=== PATIENT | female | born 1965 | race Caucasian/White ===

== ENCOUNTER 2020-08-09 16:50 | Observation (INO) | payer BC ==
[~2020-08-09] VITALS: Ht 170.2 cm; Wt 92.6 kg
[2020-08-09 17:30] LABS: BASOPHILS 0.9 % (0-2); EOSINOPHILS 1.8 % (0-7); HEMATOCRIT 39.9 % (36.0-48.0); HEMOGLOBIN 13.7 g/dL (12-16); LYMPHOCYTES 49.6 % (15-50); MCH 29.6 pg (26.0-34.0); MCHC 34.4 g/dL (31.0-37.0); MCV 86.2 fL (80.0-100.0); MEAN PLATELET VOLUME 8.1 fL (7.4-10.4); MONOCYTES 10.9 % (2-11); NEUTROPHILS 36.8 % (40-80); PLATELET COUNT 155 10x3/uL (130-400); RBC 4.63 10x6/uL (4.00-5.40); RDW 14.6 % (11.5-14.5); WBC 7.1 10x3/uL (4.8-10.8)
[2020-08-09 17:44] VITALS: BP 112/43
[2020-08-09 17:49] LABS: ANION GAP 12.8 mmol/L (8-16); POTASSIUM - SERUM 3.8 mmol/L (3.5-5.1)
[2020-08-09 17:57] LABS: ALBUMIN 3.8 g/dL (3.4-5.0); BILIRUBIN - TOTAL 0.92 mg/dL (0.2-1.3); MAGNESIUM - SERUM 2.1 mg/dL (1.8-2.4); PROTEIN - SERUM 7.6 g/dL (6.4-8.2)
--- NOTE | 2020-08-09 19:35 | NUR ---
PT AMBULATED TO RESTROOM WITH ASSISTANCE.
--- NOTE | 2020-08-09 19:41 | NUR ---
URINE SENT TO LAB
[2020-08-09 19:50] LABS: BILIRUBIN NEGATIVE (NEGATIVE); KETONE NEGATIVE (NEGATIVE); NITRITE NEGATIVE (NEGATIVE); UROBILINOGEN NORMAL mg/dL (< 2)
[2020-08-09 19:51] LABS: BACTERIA MANY HPF (NONE SEEN); SQUAMOUS EPITHELIAL 0-5 HPF (0-4)
[2020-08-09 20:39] LABS: ERYTHROCYTE SEDIMENTATION RATE 15 mm/hr (0-30)
[2020-08-09 22:00] VITALS: BP 111/56; Ht 170.2 cm; Wt 92.6 kg
--- NOTE | 2020-08-10 03:57 | NUR ---
PATIENT HAD PAIN MANAGED WITH THE PRESCRIBED PAIN MEDICATION, SHE IS CURRENTLY RESTING IN BED WITH HER EYES CLOSED.
[2020-08-10 04:00] VITALS: BP 108/48
[2020-08-10 07:21] LABS: HEMOGLOBIN 11.9 g/dL (12-16); RDW 14.1 % (11.5-14.5)
[2020-08-10 07:27] LABS: HEMATOCRIT 33.7 % (36.0-48.0); MCH 30.5 pg (26.0-34.0); MCHC 35.3 g/dL (31.0-37.0); MCV 86.2 fL (80.0-100.0); RBC 3.91 10x6/uL (4.00-5.40); WBC 6.6 10x3/uL (4.8-10.8)
[2020-08-10 07:29] LABS: PLATELET COUNT 113 10x3/uL (130-400)
[2020-08-10 07:47] LABS: ALBUMIN 3.2 g/dL (3.4-5.0); ALKALINE PHOSPHATASE 126 U/L (30-120); ALT (SGPT) 89 U/L (10-68); CALC OSMOLALITY 274 mosm/kg (275-300); CARBON DIOXIDE 27.7 mmol/L (21.0-32.0); CHLORIDE - SERUM 102 mmol/L (98-107); CREATININE - SERUM 0.7 mg/dL (0.6-1.3); GLUCOSE 106 mg/dL (74-106); MAGNESIUM - SERUM 2.1 mg/dL (1.8-2.4); PHOSPHOROUS 2.8 mg/dL (2.5-4.9); POTASSIUM - SERUM 3.8 mmol/L (3.5-5.1); PROTEIN - SERUM 6.3 g/dL (6.4-8.2); SODIUM 137 mmol/L (136-145); THYROID STIMULATING HORMONE 1.15 uIU/mL (0.36-3.74); UREA NITROGEN 16 mg/dL (7-18); eGFR NON AFRICAN AMERICAN > 90 mL/min (90-120)
--- NOTE | 2020-08-10 07:49 | NUR ---
AWAKE AND ALERT. ORIENTED X3. NO C/O AT THIS TIME. LUNGS ARE CLEAR BILATERALLY, NO COUGH NOTED. SKIN IS INTACT WITHOUT REDNESS. IV TO LEFT AC IS PATENT WITHOUT REDNESS AT INSERTION SITE. DENIES NEEDS. UP TO BR PER SELF. VOIDED 600 CC CLEAR YELLOW URINE. C/O SOME NAUSEA AT THIS TIME.
--- NOTE | 2020-08-10 07:55 | NUR ---
GIVEN 4MG ZOFRAN SLOW IVP. WILL MONITOR.
[2020-08-10 08:27] VITALS: BP 114/45
[2020-08-10] MEDS ORDERED: OXYBUTYNIN CHLOR5 MG PO (08:55)
[2020-08-10] MEDS ORDERED: CONTRAVE PO (08:56)
[2020-08-10] MEDS ORDERED: TRAZODONE HCL100 MG PO (08:56)
[2020-08-10] MEDS ORDERED: LISINOPRIL-HCT1 EAC8 PO (08:57)
[2020-08-10] MEDS ORDERED: PRAVASTATIN TAB 40M PO (08:58)
[2020-08-10] MEDS ORDERED: IBUPROFEN800 MG PO (08:59)
--- NOTE | 2020-08-10 09:00 | NUR ---
ATE MOST OF BREAKFAST. TOOK AM MEDS WITHOUT DIFFICULTY. DENIES NEEDS.
[2020-08-10] MEDS ORDERED: CYMBALTA30 MG PO (09:01)
[2020-08-10] MEDS ORDERED: ZOFRAN ODT4 MG/UDTAB PO (11:46)
[2020-08-10] MEDS ORDERED: FLORAJEN DIGES1 EACH PO (11:46)
[2020-08-10] MEDS ORDERED: PROTONIX40 MG PO (11:46)
[2020-08-10] MEDS ORDERED: LEVOFLOXACIN500 MG PO (11:47)
[2020-08-10 12:37] VITALS: BP 141/69
[2020-08-10 12:45] VITALS: BP 108/48
--- NOTE | 2020-08-10 15:30 | NUR ---
UP TO BR PER SELF. HAD SMALL AMOUNT OF SOFT LIGHT BROWN FORMED STOOL. DENIES NEEDS.
--- NOTE | 2020-08-10 16:30 | NUR ---
REPORTED ANOTHER SMALL SOFT STOOL.
[2020-08-10 16:36] LABS: EOSINOPHILS 8 % (0-7); LYMPHOCYTES 47 % (15-50); MONOCYTES 13 % (2-11); NEUTROPHILS 30 % (40-80); PLATELET ESTIMATE DECREASED
[2020-08-10 16:50] VITALS: BP 117/51
--- NOTE | 2020-08-10 18:46 | NUR ---
ATE MOST OF SUPPER. DENIES NEEDS. NO CHANGES NOTED.
[2020-08-10 20:39] VITALS: BP 115/56
--- NOTE | 2020-08-11 03:07 | NUR ---
PATIENT HAD HEADACHE MANAGED WITH TYLENOL, SHE APPEARS TO BE RESTING IN BED WITH HER EYES CLOSED.
[2020-08-11 07:31] LABS: BASOPHILS 0.7 % (0-2); EOSINOPHILS 2.5 % (0-7); HEMATOCRIT 34.7 % (36.0-48.0); HEMOGLOBIN 12.2 g/dL (12-16); LYMPHOCYTES 62.9 % (15-50); MCH 30.4 pg (26.0-34.0); MCV 86.7 fL (80.0-100.0); MEAN PLATELET VOLUME 7.9 fL (7.4-10.4); MONOCYTES 8.7 % (2-11); NEUTROPHILS 25.2 % (40-80); RBC 4.01 10x6/uL (4.00-5.40); RDW 14.4 % (11.5-14.5); WBC 5.5 10x3/uL (4.8-10.8)
[2020-08-11 07:46] LABS: PLATELET COUNT 152 10x3/uL (130-400)
[2020-08-11 07:52] LABS: ALBUMIN 3.1 g/dL (3.4-5.0); ANION GAP 8.5 mmol/L (8-16); BILIRUBIN - TOTAL 0.5 mg/dL (0.2-1.3); CALCIUM 9.1 mg/dL (8.5-10.1); CARBON DIOXIDE 29.7 mmol/L (21.0-32.0); CREATININE - SERUM 0.9 mg/dL (0.6-1.3); PHOSPHOROUS 2.7 mg/dL (2.5-4.9); POTASSIUM - SERUM 4.2 mmol/L (3.5-5.1); PROTEIN - SERUM 6.8 g/dL (6.4-8.2)
[2020-08-11 08:48] VITALS: BP 121/63
[2020-08-11 09:13] LABS: HEPATITIS C ANTIBODY <0.1 S/CO RAT (0.0-0.9)
--- NOTE | 2020-08-11 11:30 | NUR ---
PATIENT DC HOME, WENT OVER DC PAPERWORK WELL ANSWERED ALL QUESTIONS, IV DC WITH CATHETER INTACT
== END 2020-08-11 11:38 | disposition home or self-care (01) ==
LOC: D.ER 16:50 → D.MS 20:44 → OBSVTIME 21:03 → D.MS 08-11 11:38
PROVIDERS: Emergency Medicine; Family Medicine; ADMIT Emergency Medicine; ATTEND Emergency Medicine
DX: K52.9 Noninfective gastroenteritis and colitis, unspecified (principal); R10.9 Unspecified abdominal pain; I10 Essential (primary) hypertension; E78.5 Hyperlipidemia, unspecified; K21.9 Gastro-esophageal reflux disease without esophagitis; E03.9 Hypothyroidism, unspecified; G47.33 Obstructive sleep apnea (adult) (pediatric); M19.90 Unspecified osteoarthritis, unspecified site; F41.8 Other specified anxiety disorders; N39.0 Urinary tract infection, site not specified